=== PATIENT | male | born 1975 | race Caucasian/White ===

== ENCOUNTER → 2019-02-07 | Outpatient (CLI) | payer OTHER ==
[~2019-02-07] MED LIST: ATOR10 PO; BUSP15 PO; Bactrim Ds Tab1 EACH PO; ESCI10 PO; GABA300 PO; LAMO100 PO; LATUDA60 MG PO; Monodox100 MG PO; ONDA4ODT MM
== END | disposition home or self-care (01) ==
LOC: LAB EV 11:41 → LAB SHORT 11:41
DX: L72.3 Sebaceous cyst (principal)
CPT/HCPCS: 87070; 87075; 87205

== ENCOUNTER 2019-02-28 20:46 | Emergency (ER) | payer OTHER ==
[~2019-02-28] VITALS: Ht 175.3 cm; Wt 104.3 kg
[2019-02-28] MEDS ORDERED: GABA300 PO (21:35)
[2019-02-28] MEDS ORDERED: ATOR10 PO (21:36)
[2019-02-28] MEDS ORDERED: LAMO100 PO (21:37)
[2019-02-28] MEDS ORDERED: Bactrim Ds Tab1 EACH PO (21:38)
[2019-02-28] MEDS ORDERED: ESCI10 PO (21:39)
[2019-02-28] MEDS ORDERED: BUSP15 PO (21:39)
[2019-02-28] MEDS ORDERED: LATUDA60 MG PO (21:40)
[2019-02-28] MEDS ORDERED: Monodox100 MG PO (21:43)
[2019-03-01] MEDS ORDERED: ONDA4ODT MM (14:30)
== END 2019-02-28 21:47 | disposition home or self-care (01) ==
LOC: ER 20:46
DX: R19.7 Diarrhea, unspecified (principal); R11.0 Nausea; L08.89 Other specified local infections of the skin and subcutaneous tissue; T36.8X5A Adverse effect of other systemic antibiotics, initial encounter; Z88.8 Allergy status to other drugs, medicaments and biological substances; Z88.1 Allergy status to other antibiotic agents; Z88.2 Allergy status to sulfonamides; Z79.899 Other long term (current) drug therapy; F17.210 Nicotine dependence, cigarettes, uncomplicated
CPT/HCPCS: 99283

== ENCOUNTER 2019-03-01 11:26 | Emergency (ER) | payer OTHER ==
[~2019-03-01] VITALS: Ht 175.3 cm; Wt 104.3 kg
[~2019-03-01 11:26] MED LIST changes: -ONDA4ODT MM
[2019-03-01 14:17] LABS: BASOPHILS ABSOLUTE AUTO 0.12 K/mm3 (0.00-0.23); BASOPHILS PERCENT AUTO 1 % (0-2); EOSINOPHILS ABSOLUTE AUTO 0.18 K/mm3 (0.00-0.68); EOSINOPHILS PERCENT AUTO 1 % (0-6); IMMATURE GRAN ABSOLUTE AUTO 0.05 K/mm3 (0.00-0.10); IMMATURE GRAN PERCENT AUTO 0 % (0-1); LYMPHOCYTES PERCENT AUTO 26 % (21-46); MONOCYTES ABSOLUTE AUTO 1.28 K/mm3 (0.16-1.47); MONOCYTES PERCENT AUTO 10 % (4-13); Mean Corpuscular HGB 29.4 pg (26.0-34.0); Mean Corpuscular Volume 86 fL (80-100); Mean Platelet Volume 9.4 fL (9.1-12.4); NEUTROPHILS PERCENT AUTO 61 % (41-73); Platelet Count 314 K/mm3 (150-400); RDW Coefficient Variation 14.1 % (11.7-14.2); RDW Standard Deviation 43.9 fL (35.1-46.3); Red Blood Cell Count 5.45 M/mm3 (4.30-5.90); White Blood Cell Count 12.53 K/mm3 (4.00-11.30)
[2019-03-01 14:28] LABS: Alanine Aminotransfer (ALT/SGP 79 U/L (12-78); Albumin, Blood 4.3 g/dL (3.4-5.0); Albumin/Globulin Ratio 1.2 (0.8-1.8); Alk Phos 176 U/L (50-136); Anion Gap 8 mmol/L (6-16); Aspartate Aminotrans (AST/SGOT 37 U/L (12-37); Bilirubin, Total 0.8 mg/dL (0.1-1.0); Blood Urea Nitrogen 12 mg/dL (8-24); Bun/Creatinine Ratio 9.8 (12.0-20.0); CO2, Blood 20 mmol/L (21-32); Calcium, Blood 9.6 mg/dL (8.5-10.1); Chloride, Blood 112 mmol/L (98-108); Creatinine, Blood 1.23 mg/dL (0.60-1.20); Globulin, Blood 3.6 g/dL (2.2-4.0); Glomerular Filtration Rate >60 (60-); Glucose, Blood 93 mg/dL (70-99); Potassium, Blood 4.1 mmol/L (3.5-5.5); Sodium, Blood 140 mmol/L (136-145); Total Protein, Blood 7.9 g/dL (6.4-8.2)
[2019-03-01] MEDS ORDERED: ONDA4ODT MM (14:30)
== END 2019-03-01 14:54 | disposition home or self-care (01) ==
LOC: ER 11:26
PROVIDERS: Emergency Medicine
DX: L02.212 Cutaneous abscess of back [any part, except buttock and flank] (principal); Z88.2 Allergy status to sulfonamides; Z88.8 Allergy status to other drugs, medicaments and biological substances; Z88.1 Allergy status to other antibiotic agents; Z79.899 Other long term (current) drug therapy; F17.210 Nicotine dependence, cigarettes, uncomplicated
CPT/HCPCS: 36415; 80053; 85025; 96360; 99283-25; J7030

== ENCOUNTER → 2019-03-02 | Outpatient (CLI) | payer OTHER ==
[~2019-03-02] MED LIST changes: +ONDA4ODT MM
[2019-03-02 16:00] LABS: U Amphetamine Screen Not Detected; U Barbituate Screen Not Detected; U Benzodiazapine Screen Not Detected; U Buprenorphine Screen Not Detected; U Cannabinoids Screen DETECTED; U Cocaine Screen Not Detected; U Methadone Screen Not Detected; U Methamphetamine Screen Not Detected; U Opiates Screen Not Detected; U Oxycodone Screen Not Detected; U Phencyclidine Screen Not Detected; U Propoxyphene Screen Not Detected
== END ==
LOC: LAB SHORT 15:02 → LAB 15:02
PROVIDERS: Psychiatry & Neurology Psychiatry
DX: Z51.81 Encounter for therapeutic drug level monitoring (principal); Z79.899 Other long term (current) drug therapy

== ENCOUNTER → 2021-04-22 | Outpatient (CLI) | payer OTHER ==
[2021-04-24 18:59] LABS: CORONAVIRUS (COVID19) CSH-NRL Positive (Negative)
== END | disposition home or self-care (01) ==
LOC: LAB 19:04 → LAB SHORT 19:04
PROVIDERS: Physician Assistant Medical
DX: J06.9 Acute upper respiratory infection, unspecified (principal); Z20.822 Contact with and (suspected) exposure to COVID-19
CPT/HCPCS: U0003

== ENCOUNTER 2024-12-02 09:57 | Day surgery (SDC) | payer OTHER ==
[~2024-12-02] VITALS: Ht 175.3 cm; Wt 100.6 kg
[~2024-12-02 09:57] MED LIST changes: +Bentyl10 MG PO; +Bupivacaine 0.5% W/EPI 1:200000 SDV 30 ML Vial ONE; +Crestor20 MG PO; +PROP80ER PO; +SUMA25 PO
[2024-12-02] MEDS ORDERED: CeFAZolin Sodium 2,000 MG VIAL ONE (10:21)
[2024-12-02] MEDS ORDERED: Ropivacaine 0.5% HCL/PF 5 MG/ML 30ML Vial ONE (10:25)
[2024-12-02] MEDS ORDERED: IBUP800 PO (10:34)
[2024-12-02] MEDS ORDERED: TRAM50 PO (10:36)
[2024-12-02] MEDS ORDERED: Lactated Ringer's 1,000 ML IV ONE ×3 (10:54→13:07)
[2024-12-02] MEDS ORDERED: Midazolam HCl 1MG / ML 2ML Vial ONE (11:02)
--- NOTE | 2024-12-02 11:14 | NUR ---
12/02/24 1114 Rodriguez,Mark TO 1109: TIME OUT FOR BLOCK PROCEDURE. DR MONREAL PERFORMED BLOCK AND PT TOLERATED WELL.
[2024-12-02] MEDS ORDERED: propofoL 20 ML IV ONE ×2 (11:15→12:57)
[2024-12-02] MEDS ORDERED: Rocuronium Bromide 10 MG/ML 5ML Injection IV ONE ×2 (11:15→12:57)
[2024-12-02] MEDS ORDERED: Dexamethasone Sod Phos 10 MG/ML 1ML VIAL ONE (11:26)
[2024-12-02] MEDS ORDERED: Sugammadex Sodium 200 MG/2ML SDV (100 MG/ML) ONE (11:26)
[2024-12-02] MEDS ORDERED: Ondansetron HCl 2 MG / ML 2ML Vial ONE (11:26)
[2024-12-02] MEDS ORDERED: Ketorolac Tromethamine 30mg Vial ONE (11:26)
[2024-12-02 13:45] VITALS: BP 123/84
--- NOTE | 2024-12-02 14:47 | NUR ---
12/02/24 1447 Master Null PT DENIES PAIN OR NAUSEA BY TIME OF DISCHARGE. YO, ALLY MOTHER, PRESENT FOR ALL DISCHARGE INSTRUCTIONS AND FOLLOW-UP NEEDS
== END 2024-12-02 14:46 | disposition home or self-care (01) ==
LOC: ORSCSDS 09:57
PROVIDERS: Podiatrist Foot & Ankle Surgery
PROC: 0SGH04Z Fusion of Right Tarsal Joint with Internal Fixation Device, Open Approach (ICD-10-PCS; principal; 2024-12-02 11:30)
PROC: 0QP104Z Removal of Internal Fixation Device from Sacrum, Open Approach (ICD-10-PCS; principal; 2024-12-02 11:30)
DX: M19.071 Primary osteoarthritis, right ankle and foot (principal); T84.84XA Pain due to internal orthopedic prosthetic devices, implants and grafts, initial encounter; I10 Essential (primary) hypertension; J44.89 Other specified chronic obstructive pulmonary disease; F32.A Depression, unspecified; E78.5 Hyperlipidemia, unspecified; Z79.899 Other long term (current) drug therapy
CPT/HCPCS: C1713; C1734; C1769; J0690; J1100; J1885; J2250; J2405; J2704; J2795; J7120